=== PATIENT | male | born 1955 | race Caucasian/White ===

== ENCOUNTER 2024-07-24 07:33 | Day surgery (SDC) | payer MEDICARE, OTHER ==
[~2024-07-24 07:33] MED LIST: Lidocaine 2% 5 ML SDV ONE; Sodium Chloride 0.9% 10 ML Syringe FLUSH PRN; Sodium Chloride 0.9% 2.5 ML Syringe FLUSH PRN; Sodium Chloride 0.9% 20 ML SDV IV PRN; propofoL 50 ML ONE
[2024-07-24] MEDS: Lactated Ringers 1,000 ML IV SCH (08:00)
[2024-07-24] MEDS ORDERED: Water For Injection, Sterile 20 ML ONE (08:28)
[2024-07-24] MEDS ORDERED: dexmedeTOMIDine HCl 200 MCG/2 ML SDV ONE (08:28)
[2024-07-24] MEDS ORDERED: Ketamine HCL/NACL, ISO-OSM 50 MG/5 ML Syringe ONE (08:30)
[2024-07-24] MEDS ORDERED: Lidocaine 4% 5 ML Amp ONE (08:31)
[2024-07-24] MEDS ORDERED: Propofol 200 MG/20 ML SDV ONE (09:51)
== END 2024-07-24 11:28 | disposition home or self-care (01) ==
LOC: MW.SDS 07:33
PROVIDERS: ATTEND Surgery
DX: Z12.11 Encounter for screening for malignant neoplasm of colon (principal); D12.3 Benign neoplasm of transverse colon; K29.50 Unspecified chronic gastritis without bleeding; K44.9 Diaphragmatic hernia without obstruction or gangrene; K22.70 Barrett's esophagus without dysplasia; I25.10 Atherosclerotic heart disease of native coronary artery without angina pectoris; E78.5 Hyperlipidemia, unspecified; I48.91 Unspecified atrial fibrillation; Z88.8 Allergy status to other drugs, medicaments and biological substances; Z79.01 Long term (current) use of anticoagulants; Z79.899 Other long term (current) drug therapy; Z87.891 Personal history of nicotine dependence; Z91.048 Other nonmedicinal substance allergy status
CPT/HCPCS: 43239; 45380; J2704; J7120; J3490